=== PATIENT | male | born 1975 | race Caucasian/White ===

== ENCOUNTER → 2019-04-20 | Outpatient (CLI) | payer OTHER | LOC: CAT 09:59 | DX: R91.1 Solitary pulmonary nodule (principal); J84.10 Pulmonary fibrosis, unspecified; Z90.49 Acquired absence of other specified parts of digestive tract ==

== ENCOUNTER → 2019-07-13 | Outpatient (CLI) | payer OTHER ==
[~2019-07-13] VITALS: Ht 175.3 cm; Wt 68.9 kg
[~2019-07-13] MED LIST: AMITRIPTYLINE H10 M3 PO; IBU800 MG PO; MELOXICAM15 MG PO; OMEPRAZOLE 20 M20 M1 PO; TYLENOL PM EX-1 EACH PO; ULTRAM50 MG PO
[2019-07-13 08:19] VITALS: BP 124/78
--- NOTE | 2019-07-13 08:36 | NUR ---
Pain Clinic Assessment: 1. History of Osteoarthritis: BACK KNEES History of Rheumatoid Arthritis: * NONE 2. Height: 5 ft. 9 in. 175.3 cm. Weight: 152.0 lb. oz. 68.947 kg. Patient's BMI: 22.4 3. Vital Signs: BP: 124/78 Pulse: 80 Resp: 14 Temp: 02 Sat: 99 ECG Mon: 4. Pain Intensity: 8 5. Fall Risk: Dizziness: N Needs help standing or walking: N Fallen in the last 3 months: N Fall risk comments: 6. Patient on Blood Thinner: None 7. History of Hypertension: N 8. Opioid Therapy greater than 6 weeks: Opiate Contract Signed: 9. Risk Assessment Tool Provided: 10. Functional Assessment Tool: 11. Recreational Drug Use: Never Drug Type: Tobacco Use: Never Smoker Tobacco Type: Amount or Packs/day: How Many Years: Alcohol Use: Yes Frequency: Weekly Quant: 1-2 WEEK
--- NOTE | 2019-07-31 14:24 | HPC ---
[facility] [place] [address] PAIN MANAGEMENT CONSULTATION Name: TASHI COLEMAN Aleksandr Room #: [facility]#: [id number] Admission: 07/13/19 Attend Phys: Eliezer Garcia MD Discharge: Date of : 77 Report #: [id number] THIS REPORT FOR: //name// CC: Eliezer Hwang DATE OF SERVICE: 07/13/2019 CHIEF COMPLAINT: Thoracic chest pain. Also, pain in the knees. HISTORY: The patient is a 43-year-old male who has been referred to the pain clinic for evaluation of back pain. Does have some problems with knee pain as well. Pain has worsened over the past 2 months. He notes a pulsating discomfort in his back area. Notes a pulling sensation with moving certain weights. Certain stretches can exacerbate his discomfort. He has tried Biofreeze. He has tried ibuprofen. Tramadol in the past has not provided much long-term benefit. Notes that there is some benefit from the use of ibuprofen. Has used meloxicam in the past, but he does not feel it has been as helpful as the ibuprofen has been. He had an x-ray of his back and was told that he has some arthritis ongoing. Does not have physical therapy. He has not had chiropractic treatment. Does have some discomfort in his left hip. Has some problems and discomfort in his knees as well. He has not had back pain or back surgery. He is not having any real changes in bowel or bladder function. He describes it as continuous, shooting, pulling, stabbing discomfort in the back area. Rates it as an 8/10 at this point. It is exacerbated particularly with bending. Somewhat improves when he is sitting. ALLERGIES: No known drug allergies. CURRENT MEDICATIONS: Tylenol Extra Strength, ibuprofen 800 mg 1 p.o. t.i.d., tramadol 50 mg q. 6 hours p.r.n., meloxicam 15 mg 1 tablet daily. Does not take the meloxicam and ibuprofen at the same time. Omeprazole 20 mg. PAST MEDICAL HISTORY: 1. 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 2. Kidney stones. PAST SURGICAL HISTORY: Cholecystectomy. SOCIAL HISTORY: He works in housekeeping, he works in [employer]. He is working at this juncture. REVIEW OF SYSTEMS: Generally good health, wears glasses, insomnia. LABORATORY DATA: No radiologic reports are available at the [place] [address] PAIN MANAGEMENT CONSULTATION Name: TASHI COLEMAN Room #: [facility]#: [id number] Admission: 07/13/19 Attend Phys: Eliezer Garcia MD Discharge: Date of : 77 Report #: [id number] PAIN CLINIC ASSESSMENT AND PQRS: 1. History of osteoarthritis involving his back as well as knees. He is not being treated for rheumatoid arthritis. 2. Height 5 feet 9 inches, weight 152 pounds, BMI is 22.4. 3. Vital signs: Blood pressure 124/78, pulse 80, respiratory rate 14, room air saturation 99%. 4. Pain intensity 8/10. 5. Fall history: The patient has not fallen in the last 3 months. 6. Blood thinner. The patient is not on a blood thinning medication. 7. Hypertension. The patient is not being treated for hypertension. 8. Opioids greater than 6 weeks. The patient is not on an opioid regimen, but is he is taking tramadol. 9. Risk assessment tool, low for opioid use. 10. Functional assessment tool 35/70. 11. Recreational drug use: The patient denies. 12. Tobacco: The patient has never smoked. 13. Alcohol: The patient drinks 1-2 alcoholic beverages. PHYSICAL EXAMINATION: GENERAL: The patient is a well-developed, well-nourished white male. Appears his stated age. He is alert and oriented x 3. His affect is appropriate. Speech is fluent. HEENT: Normocephalic, atraumatic. Extraocular eye muscles intact. Sclerae nonicteric. Mucous membranes moist. NECK: Without adenopathy or JVD. EXTREMITIES: Upper extremity muscle strength judged to be 5/5 for the major muscle groups in the upper extremity. The patient has some pain in the mid back area at approximately T12-L1. There was some myofascial discomfort in this area. Forward bending, lumbar extension, left and right lateral bending, left and right lateral rotation will cause some increased discomfort in the mid back area. The patient is not having pain that radiates from the midline along the dermatomal distribution. Deep tendon reflexes are +3 biceps, +2 for the brachioradialis and +1 for the triceps. Deep tendon reflexes are somewhat hyperactive in the knees. The patient has 1-2 beats of clonus. Upper extremity muscle strength judged to be 5-/5 for the major muscle groups in the upper extremity and 5/5 for the major muscle groups in the lower extremity. IMPRESSION: 1. Midline back pain, myofascial. 2. Chronic right-sided thoracic pain. 3. Intercostal pain. RECOMMENDATIONS: We discussed treatment options with the patient. At this juncture, he has not undergone physical therapy. He does have pain and discomfort, which appears to be of myofascial nature. We will have the patient [facility] [address] [place] [place] [address] PAIN MANAGEMENT CONSULTATION Name: TASHI COLEMAN [id number] Admission: 07/13/19 Attend Phys: Eliezer Garcia MD Discharge: Date of : 77 Report #: [id number] follow up with physical therapy. Should his pain continue to be problematic, possibility of injecting the areas with local anesthetic and steroid have been discussed. We would like to thank you for letting us participate in his care. We hope he continues to improve. <ELECTRONICALLY SIGNED> By: Eliezer Garcia MD 07/31/19 [id number] [id number] Eliezer Garcia MD /[facility]
== END | disposition home or self-care (01) ==
LOC: PAIN 07:09
DX: M79.18 Myalgia, other site (principal); G51.0 Bell's palsy; N20.0 Calculus of kidney; I10 Essential (primary) hypertension; G89.29 Other chronic pain; Z79.899 Other long term (current) drug therapy; Z90.49 Acquired absence of other specified parts of digestive tract; Z98.890 Other specified postprocedural states

== ENCOUNTER → 2020-04-04 | Outpatient (CLI) | payer OTHER | LOC: CAT 10:09 | PROVIDERS: ATTEND Family Medicine | DX: Z13.6 Encounter for screening for cardiovascular disorders (principal); I25.10 Atherosclerotic heart disease of native coronary artery without angina pectoris; E78.00 Pure hypercholesterolemia, unspecified ==